=== PATIENT | male | born 1970 | race Two or more races ===

== ENCOUNTER 2024-07-16 15:53 | Emergency (ER) | payer OTHER ==
[~2024-07-16] VITALS: Ht 167.6 cm; Wt 93.4 kg
[2024-07-16] MEDS ORDERED: ATACAND32 MG PO (16:12)
[2024-07-16] MEDS ORDERED: AMLODIPINE-OLM1 EACH PO (16:13)
[2024-07-16] MEDS ORDERED: TRAMADOL HCL 50 MG TABLET PO ONE (17:15)
[2024-07-16] MEDS ORDERED: FAMOtidine 10 MG/ML (4ML VIAL) IV ONE (17:15)
[2024-07-16 17:58] LABS: PH,URINE 5.5 (5.0-8.0); URINE APPEARANCE Clear; URINE BILIRRUBIN Negative (NEGATIVE); URINE BLOOD Large; URINE COLOR Yellow; URINE GLUCOSE Negative (NEGATIVE); URINE KETONE Negative (NEGATIVE); URINE LEUKOCYTE Negative; URINE NITRATE Negative; URINE PROTEIN Negative (NEGATIVE); URINE UROBILINOGEN 0.2 E.U./dl
[2024-07-16 18:01] LABS: HEMATOCRIT 41.9 % (39.0-48.0); HEMOGLOBIN 14.1 g/dL (13-16.00); MEAN CELL VOLUME 89.7 fL (80.0-100.00); MEAN CORPUSCULAR HEMOGLOBIN 30.1 pg (27.00-32.0); MEAN CORPUSCULAR HGB CONC 33.6 g/dl (32.0-36.0); PLATELET COUNT 238 K/uL (150-450); RED BLOOD COUNT 4.67 M/uL (4.00-6.00); RED CELL DISTRIBUTION WIDTH 13.1 % (11.5-14.5)
[2024-07-16 18:04] LABS: URINE BACTERIA 4.8 uL (0.0-1933); URINE EPITHELIAL CELLS 5.8 uL (0.0-38.8); URINE RBC 133.6 uL (0.0-20.8); URINE WBC 7.9 uL (0.0-23.2)
[2024-07-16 18:10] LABS: URINE CAST 0.14 uL (0.0-1.40)
[2024-07-16 18:37] LABS: INR 1.01; PARTIAL THROMBOPLASTIN TIME 25.9 SECONDS (22.0-34.0)
[2024-07-16 18:39] LABS: ALBUMIN 4.3 gm/dL (3.4-5.0); BILIRUBIN TOTAL 0.53 mg/dL (0.3-1.2); CALCIUM 9.5 mg/dL (8.5-10.1); CREATININE SERUM 1.06 mg/dL (0.70-1.30); GFR 73.08; GLOBULINA 3.4 G/DL (2.4-3.5); POTASSIUM 4.2 mEq/L (3.5-5.1); TOTAL PROTEIN 7.7 gm/dL (6.4-8.2)
[2024-07-16] MEDS ORDERED: BACTRIM DS TAB1 EACH PO (21:58)
[2024-07-16] MEDS ORDERED: PEPCID AC20 MG PO (21:58)
[2024-07-16] MEDS ORDERED: TAMS0.4C PO (21:58)
[2024-07-16] MEDS ORDERED: TRAMADOL HCL50 MG PO (21:58)
[2024-07-16] MEDS ORDERED: ZOFRAN8 MG PO (21:58)
== END 2024-07-16 22:14 | disposition home or self-care (01) ==
LOC: ER 15:56
PROVIDERS: General Practice
DX: R10.32 Left lower quadrant pain (principal); N20.0 Calculus of kidney; K76.0 Fatty (change of) liver, not elsewhere classified; I10 Essential (primary) hypertension; Z88.6 Allergy status to analgesic agent